=== PATIENT | male | born 1945 | race Hispanic/Latino ===

== ENCOUNTER 2016-10-22 07:03 | Day surgery (SDC) | payer MEDICARE, BC ==
[2016-10-15 06:52] VITALS: BMI 30.1
[2016-10-22] MEDS ORDERED: Propofol 10 mg/ml Inj (20 ML) ONE (09:12)
[2016-10-22] MEDS ORDERED: Lidocaine 1% Inj (20ml) ONE (09:12)
[2016-10-22] MEDS ORDERED: cefTRIAXone (Rocephin) 1 gm Inj ONE (10:15)
[2016-10-22] MEDS ORDERED: Lactated Ringer's 1,000 ML IV SCH (10:55)
--- NOTE | 2016-10-22 11:06 | OP ---
PROCEDURE DATE: 10/22/2016 PREOPERATIVE DIAGNOSIS: Bladder tumor. POSTOPERATIVE DIAGNOSIS: Bladder tumor. PROCEDURE: Cystoscopy with excision and fulguration of medium size bladder tumor. SURGEON: Juancarlos Ken M.D. ANESTHESIA: LMA. DESCRIPTION OF OPERATION: After adequate LMA anesthesia was given, the patient was placed in lithoto my, prepped and draped in usual manner. A 22-Bahamian cystourethroscope was introduced. The patient h ad a wide caliber stricture previously seen. Rather than go through the narrowing, I removed the 22- [place]ian cystourethroscope, took a 17-Bahamian cystoscope and was able to easily navigate through the wid e stricture into the bladder where I saw the previously seen bladder tumor lateral to the right urete ral orifice and clearly away from the right ureteral orifice. There were no other visible tumors pre sent and the findings were unchanged from the prior cystoscopy approximately 10 days ago. I then eriberto wendie the sensor wire through the 17-Bahamian cystoscope and reintroduced the 22-Bahamian cystoscope over t he sensor wire and easily went through the wide caliber stricture into the bladder. I then took biop sy forceps and sequentially removed the bladder tumor, biopsying into the wall to make sure there was no invasion. The area that was fulgurated and/or excised exceeded 2.5 cm. The ureteral orifices we re seen to have free efflux of clear urine. All irrigation fluid placed in the bladder returned. Th e return was crystal clear. An 18-Bahamian Lund catheter was placed after removing the cystoscope and the patient was awakened and brought to recovery room in good condition. Juancarlos Ken MD cc: [id number] TT: 10/22/2016 11:06:06 tn
[2016-10-22] MEDS ORDERED: HYDROmorphone 0.5 mg/0.5 ml ISec ONE ×2 (11:09→11:28)
[2016-10-22] MEDS: HYDROmorphone 0.5 mg/0.5 ml ISec IVP PRN ×2 (11:13→11:36)
[2016-10-22 12:38] VITALS: TEMP 97.6
[2016-10-22 17:44] VITALS: BP 138/56; PULSE 60; RESP 20; O2SAT 99
== END 2016-10-22 17:45 | disposition home or self-care (01) ==
LOC: SDS 07:03
PROVIDERS: ATTEND Urology
DX: D49.4 Neoplasm of unspecified behavior of bladder (principal); N30.00 Acute cystitis without hematuria; N30.20 Other chronic cystitis without hematuria
CPT/HCPCS: 52235; 82948; 88305; J0696; J1170; J2405; J2704; J2765; J3010; J7120 ×2

== ENCOUNTER 2017-09-04 07:57 | Day surgery (SDC) | payer MEDICARE, BC ==
[2016-10-15 06:52] VITALS: BMI 30.1
[2017-09-04 09:13] VITALS: RESP 18
[2017-09-04] MEDS ORDERED: Sodium Chloride 0.9% 1,000 ML IV SCH (09:15)
[2017-09-04] MEDS ORDERED: Lidocaine 2% Inj (20ml) ONE (12:18)
[2017-09-04] MEDS ORDERED: Iodixanol 320 MG/ML 200 ML BOTTLE IV ONE (12:19)
[2017-09-04] MEDS ORDERED: Iohexol 350mgl/ml 50 ML ONE (12:19)
[2017-09-04] MEDS ORDERED: Iodixanol 320 MG/ML 100 ML BOTTLE IV ONE (12:19)
[2017-09-04] MEDS ORDERED: Midazolam 2 MG/2 ML VIAL ONE (12:20)
[2017-09-04] MEDS ORDERED: Phenylephrine 10 mg/ml Inj ONE (12:42)
[2017-09-04 13:23] VITALS: TEMP 98.1
[2017-09-04 14:46] VITALS: O2SAT 97
[2017-09-04 16:01] VITALS: BP 133/61; PULSE 65
--- NOTE | 2017-09-05 08:38 | CARDCATH ---
PROCEDURE DATE: 09/04/2017 PROCEDURES: 1. Selective left and right coronary angiography. 2. Left ventriculography. 3. Right femoral arteriography. 4. Angio-Seal deployment. HISTORY: This is a 72-year-old man with known coronary artery disease status post prior PCI with LAD, who has had worsening exertional angio. The stress test suggest multivessel ischemia and cardiac catheterization was advised. INDICATION: As above. FINDINGS: HEMODYNAMICS: The aortic pressure was 140/70 with left ventricular pressure of 140/16. CORONARY ANATOMY: 1. The left mainstem had a distal tapering 50% severity. 2. The left anterior descending artery had a 50% ostial stenosis. The previously placed stent in the mid portion of vessel had moderate in-stent restenosis. The distal vessels were of moderate size and noted to be free of disease. The diagonal branches had some mild diffuse disease. 3. The left circumflex artery was a fairly large vessel giving rise to one large obtuse marginal branch. The circumflex as well as the LAD were fairly heavily calcified in the proximal segment. The circumflex artery had 90% ostial stenosis. 4. The right coronary artery was heavily calcified throughout its course. This had a 70% proximal stenosis. Mild irregularities were noted distally. LEFT VENTRICULOGRAPHY: A hand injection was performed in the left ventricle revealing [id number] anteroapical hypokinesis with an overall ejection fraction of 50%. There was no aortic valve gradient noted on catheter pullback. Mitral regurgitation was not assessed. RIGHT FEMORAL ARTERIOGRAPHY: A right femoral arteriogram was performed in the [place] projection. This revealed no evidence of significant disease and appropriate level of arterial puncture. The puncture site was then closed with deployment of an Angio-Seal device. CONCLUSION: Significant left main as well as ostial LAD and circumflex system disease, moderately severe proximal RCA disease, with mildly reduced LV systolic function. RECOMMENDATIONS: Given the above findings of triple vessel disease with LV dysfunction and proximal LAD involvement in the setting of diabetes, coronary artery bypass surgery has been advised as the preferred mode of revascularization. The option for evaluation of his films at a tertiary center for more complex percutaneous intervention has been offered to the patient as an alternative as well. He prefers to proceed with bypass surgery. This will be arranged as an outpatient as quickly as possible. Continued risk factor control was advised. Emiliano Paredes MD CC: Laura Augustine MD MTDD
== END 2017-09-04 16:20 | disposition home or self-care (01) ==
LOC: CATH 07:57
PROVIDERS: ATTEND Internal Medicine Cardiovascular Disease
DX: I25.119 Atherosclerotic heart disease of native coronary artery with unspecified angina pectoris (principal); E11.51 Type 2 diabetes mellitus with diabetic peripheral angiopathy without gangrene; I10 Essential (primary) hypertension; Z98.61 Coronary angioplasty status
CPT/HCPCS: 36415; 86850; 86900; 93458; 99152; C1760; C1769; C2629; J1644; J2250; J3010; J7040 ×2; Q9966